=== PATIENT | female | born 1965 ===

== ENCOUNTER 2018-01-18 09:16 | Emergency (ER) | payer OTHER ==
[2018-01-18 09:20] VITALS: BMI 30.6
[2018-01-18] MEDS ORDERED: Oxycodone/Acetaminophen 5/325 mg Tab PO ONE (10:21)
[2018-01-18] MEDS ORDERED: Oxycodone/Acetaminophen 5/325 mg Tab ONE (10:37)
--- NOTE | 2018-01-18 11:09 | CT ---
PROCEDURE: CT HEAD WITHOUT CONTRAST. HISTORY: Headache, facial rash COMPARISON: None available. TECHNIQUE: Axial computed tomography images were obtained through the head/brain without intravenous contrast. Radiation dose: Total exam DLP = 777.03 mGy-cm. This CT exam was performed using one or more of the following dose reduction techniques: Automated exposure control, adjustment of the mA and/or kV according to patient size, and/or use of iterative reconstruction technique. FINDINGS: HEMORRHAGE: No intracranial hemorrhage. BRAIN: There are mild chronic microangiopathic changes. Garcia-white matter differentiation is preserved. There is no mass, mass effect or abnormal extra-axial fluid collection. There is a nonspecific calcification in the left parietal cortex. VENTRICLES: There is mild global parenchymal volume loss and proportionate enlargement of the ventricles and cortical sulci. CALVARIUM: There is no calvarial fracture or extracranial soft tissue swelling. PARANASAL SINUSES: Predominantly clear. MASTOID AIR CELLS: Predominantly clear. OTHER FINDINGS: None. IMPRESSION: No acute intracranial abnormality. Mild chronic microangiopathic changes. Mild global parenchymal volume loss, slightly advanced for the patient's age.
--- NOTE | 2018-01-18 11:32 | ED PDOC ---
HPI: Headache Time Seen by Provider: 01/18/18 09:28 Chief Complaint (Nursing): Headache Chief Complaint (Provider): Headache History Per: Patient History/Exam Limitations: no limitations Onset/Duration Of Symptoms: Days (x 5) Quality: Burning Additional Complaint(s): 52 years old female presents to the ED with complaints of burning rash on the left side of her face below her left eye, and left side of her nose associated with facial pain, left ear pain and headache onset 5 days. Patient reports pain started with nasal congestion and runny nose and admits taking Trimosin for pain. She states pain radiates to her left neck, left shoulder and left arm. Patient reports using artificial tears after experiencing eye redness. She denies any fever, chest pain or difficulty breathing. PMD: non provided Past Medical History Reviewed: Historical Data, Nursing Documentation, Vital Signs Vital Signs: Last Vital Signs Temp 98.6 F 01/18/18 09:20 Pulse 70 01/18/18 09:20 Resp 16 01/18/18 09:20 BP 147/84 01/18/18 09:20 Pulse Ox 96 01/18/18 09:20 - Medical History PMH: Gall Bladder Disease - Surgical History Surgical History: Cholecystectomy, Hernia Repair (umbilical), - Family History Family History: States: Unknown Family Hx - Social History Current smoker - smoking cessation education provided: No Alcohol: None Drugs: Denies - Home Medications Home Medications: Ambulatory Orders Medication Instructions Recorded Acyclovir [Zovirax] 800 mg PO 5XD #35 tab 01/18/18 Glycerin/Propylene Glycol 1 drop OS Q3 #1 bottle 01/18/18 [Artificial Tears Drops] Trifluridine Opht 1% [Viroptic 1% 1 drop OS Q2 10 Days #1 bottle 01/18/18 Opht Soln] oxyCODONE/Acetaminophen [Percocet 1 ea PO Q6 PRN #15 tab 01/18/18 5/325 mg Tab] - Allergies Allergies/Adverse Reactions: Allergies Allergy/AdvReac Type Severity Reaction Status Date / Time No Known Allergies Allergy Verified 01/18/18 09:38 Review of Systems ROS Statement: Except As Marked, All Systems Reviewed And Found Negative Constitutional: Negative for: Fever, Chills Eyes: Positive for: Pain (left eye), Redness (left eye) ENT: Positive for: Ear Pain (left sided), Nose Discharge, Nose Congestion Cardiovascular: Negative for: Chest Pain Respiratory: Negative for: Shortness of Breath Musculoskeletal: Positive for: Neck Pain (left sided), Shoulder Pain (left), Arm Pain (left) Neurological: Positive for: Headache Physical Exam - Reviewed Nursing Documentation Reviewed: Yes Vital Signs Reviewed: Yes - Physical Exam Appears: Positive for: Non-toxic, No Acute Distress Head Exam: Positive for: ATRAUMATIC, NORMOCEPHALIC Skin: Positive for: Rash (Vesicular on left lower eyelid. Left laterally on nose and tip of nose) Eye Exam: Positive for: EOMI, PERRL ENT: Positive for: Normal ENT Inspection. Negative for: Other (Uptake of fluorescein. Dendritic ulcer.) Neck: Positive for: Normal, Supple Cardiovascular/Chest: Positive for: Regular Rate, Rhythm. Negative for: Murmur Respiratory: Positive for: Normal Breath Sounds. Negative for: Respiratory Distress Gastrointestinal/Abdominal: Positive for: Normal Exam, Soft, Tenderness Extremity: Positive for: Normal ROM. Negative for: Tenderness, Swelling Neurologic/Psych: Positive for: Alert, Oriented - Laboratory Results Result Diagrams: 01/18/18 10:45 01/18/18 10:45 - ECG O2 Sat by Pulse Oximetry: 96 (RA) Pulse Ox Interpretation: Normal Medical Decision Making Medical Decision Making: Time: 1016 Initial Impression: Facial rash and headache. Differential includes but not limited to herpes zoster of face and oftalmos herpes zoster. Initial Plan: --Head CT w/o Contrast --BMP --CBC (with differential) --Percocet 5/325 mg tab PO --Toradol 30 mg IM Time: [address] FINDINGS: HEMORRHAGE: No intracranial hemorrhage. BRAIN: There are mild chronic microangiopathic changes. Garcia-white matter differentiation is preserved. There is no mass, mass effect or abnormal extra- axial fluid collection. There is a nonspecific calcification in the left parietal cortex. VENTRICLES: There is mild global parenchymal volume loss and proportionate enlargement of the ventricles and cortical sulci. CALVARIUM: There is no calvarial fracture or extracranial soft tissue swelling. PARANASAL SINUSES: Predominantly clear. MASTOID AIR CELLS: Predominantly clear. OTHER FINDINGS: None. IMPRESSION: No acute intracranial abnormality. Mild chronic microangiopathic changes. Mild global parenchymal volume loss, slightly advanced for the patient's age. Time: [address] Kaur, who covers for Dr. Vance, and recommends starting the patient on artificial eye drops and states he can see her today in his office. Patient is given prescription and is stable for discharge. Scribe Attestation: Documented by Vi Webb, acting as a scribe for Yaya Reddy MD. Provider Scribe Attestation: All medical record entries made by the Scribe were at my direction and personally dictated by me. I have reviewed the chart and agree that the record accurately reflects my personal performance of the history, physical exam, medical decision making, and the department course for this patient. I have also personally directed, reviewed, and agree with the discharge instructions and disposition Disposition - Clinical Impression Clinical Impression: Herpes zoster ophthalmicus of left eye, Shingles - Patient ED Disposition Is Patient to be Admitted: No Doctor Will See Patient In The: Office Counseled Patient/Family Regarding: Studies Performed, Diagnosis, Need For Followup - Disposition Referrals: Brandon Vance MD [Staff Provider] - Disposition: Routine/Home Disposition Time: 11:30 Condition: GOOD Additional Instructions: Take your medications as instructed. Follow up with eye doctor today. Prescriptions: Acyclovir [Zovirax] 800 mg PO 5XD #35 tab Glycerin/Propylene Glycol [Artificial Tears Drops] 1 drop OS Q3 #1 bottle oxyCODONE/Acetaminophen [Percocet 5/325 mg Tab] 1 ea PO Q6 PRN #15 tab PRN Reason: Pain, Severe (8-10) Trifluridine Opht 1% [Viroptic 1% Opht Soln] 1 drop OS Q2 10 Days #1 bottle Instructions: Jared BARONE) Print Language: TURKISH
[2018-01-18 12:13] LABS: BASO % 0.5 % (0.0-2.0); EOS # 0.1 K/uL (0.0-0.7); EOS % 3.6 % (0.0-4.0); HEMOGLOBIN 14.2 g/dL (12.0-16.0); LYMPH % 27.8 % (20.0-40.0); MEAN CELL VOLUME 89.6 fl (81.0-99.0); MEAN CORPUSCULAR HGB CONC 33.5 g/dL (33.0-37.0); MEAN PLATELET VOLUME 9.4 fl (7.2-11.7); MONO # 0.4 K/uL (0.0-0.8); NEUT # 2.1 K/uL (1.8-7.0); NEUT % 56.1 % (50.0-75.0); NRBC % 0.2 % (0.0-0.0); RBC 4.73 Mil/uL (3.80-5.20); RED CELL DISTRIBUTION WIDTH 13.6 % (11.5-14.5); WHITE BLOOD COUNT 3.7 K/uL (4.8-10.8)
[2018-01-18 12:38] LABS: BLOOD UREA NITROGEN 11 mg/dl (7-17); CALCIUM 9.1 mg/dL (8.4-10.2); GFR AFRICAN-AMERICAN > 60; GFR NON-AFRICAN AMERICAN > 60
[2018-01-18 13:15] VITALS: BP 139/77; PULSE 65; RESP 18; TEMP 98.5
[2018-01-18 13:17] VITALS: O2SAT 96
== END 2018-01-18 13:05 | disposition home or self-care (01) ==
LOC: H.ER 09:16
DX: B02.30 Zoster ocular disease, unspecified (principal); B02.9 Zoster without complications
CPT/HCPCS: 70450; 80048; 85025; 96372; 99285; J1885

== ENCOUNTER 2018-09-09 17:54 | Emergency (ER) | payer SELFPAY ==
[2018-09-09 17:54] VITALS: BMI 30.6
[2018-09-09 18:08] VITALS: RESP 18; O2SAT 96
[2018-09-09] MEDS ORDERED: Albuterol-Ipratrop 3 mg / 0.5 (3 ml) UD ONE (19:59)
--- NOTE | 2018-09-09 19:59 | ED PDOC ---
HPI: Influenza Time Seen by Provider: 09/09/18 18:34 Chief Complaint: Cough, Cold, Congestion Chief Complaint (Provider): Cough, Cold, Congestion History Per: Patient Exam Limitations: no limitations Onset/Duration Of Symptoms: Days (x2 weeks) Symptoms include: fever, headache, sore throat, cough, nasal congestion Sick Contacts (Context): Family Member(s) (daughter) Additional complaint(s):: Ciera Tolentino is a 53 year old female with no past medical history, who presents to the emergency department complaining of cough, nasal congestion, onset x2 weeks. Patient states she started to have nasal congestion with drainage, headache, cough with production of yellowish sputum. She was a given a Rx by her PMD for Azithromycin that she completed x4 days ago. Her cough was persistent and she had more trouble breathing when walking. She also developed a mild sore throat for the past couple of days associated with a fever. The fever was measured to be 39 Celsius was lasted noted x2 days ago. Patient has been using mucinex for cough and excedrin for chest pain that persists after coughing. The pain does not radiate anywhere, she also denies any palpitations, dizziness, nausea, vomiting, or diarrhea. PMD: Candelaria Smith Past Medical History Reviewed: Historical Data, Nursing Documentation Vital Signs: Last Vital Signs Temp 98.3 F 09/09/18 18:07 Pulse 79 09/09/18 18:07 Resp 18 09/09/18 18:07 BP 156/103 H 09/09/18 18:07 Pulse Ox 96 09/09/18 18:07 - Medical History PMH: No Chronic Diseases, Gall Bladder Disease - Surgical History Surgical History: Cholecystectomy, Hernia Repair (umbilical), - Family History Family History: States: Unknown Family Hx - Home Medications Home Medications: Ambulatory Orders Medication Instructions Recorded Acyclovir [Zovirax] 800 mg PO 5XD #35 tab 01/18/18 Glycerin/Propylene Glycol 1 drop OS Q3 #1 bottle 01/18/18 [Artificial Tears Drops] Trifluridine Opht 1% [Viroptic 1% 1 drop OS Q2 10 Days #1 bottle 01/18/18 Opht Soln] oxyCODONE/Acetaminophen [Percocet 1 ea PO Q6 PRN #15 tab 01/18/18 5/325 mg Tab] Albuterol 0.083% [Albuterol 3 ml IH Q6 PRN 7 Days neb 09/09/18 Sulfate 3 Ml] Prednisone 50 mg PO DAILY 4 Days tablet 09/09/18 - Allergies Allergies/Adverse Reactions: Allergies Allergy/AdvReac Type Severity Reaction Status Date / Time No Known Allergies Allergy Verified 09/09/18 18:07 Review of Systems ROS Statement: Except As Marked, All Systems Reviewed And Found Negative Constitutional: Positive for: Fever ENT: Positive for: Nose Discharge, Nose Congestion, Throat Pain Cardiovascular: Negative for: Chest Pain, Palpitations Respiratory: Positive for: Cough, Sputum Gastrointestinal: Negative for: Nausea, Vomiting, Diarrhea Neurological: Positive for: Headache. Negative for: Dizziness Physical Exam - Reviewed Nursing Documentation Reviewed: Yes Vital Signs Reviewed: Yes - Physical Exam Appears: Positive for: No Acute Distress Skin: Positive for: Normal Color ENT: Positive for: TM Is/Are (Left ear: effusion but no erythema or bulging // Right ear: normal), Pharyngeal Erythema. Negative for: Tonsillar Exudate, Tonsillar Swelling Cardiovascular/Chest: Positive for: Regular Rate, Rhythm. Negative for: Murmur Respiratory: Positive for: Rhonchi (diffuse rhonchi bilaterally but partially cleared by cough). Negative for: Rales, Wheezing Neurologic/Psych: Positive for: Alert, Oriented (x3) Medical Decision Making Medical Decision Making: Time: 1949 Plan: --Chest x-ray --Duoneb 3 ml INH --Ibuprofen 600 mg PO --Rapid strep group A antigen --Rapid flu a/b 2150 Chest x-ray was unremarkable, no active pulmonary disease. 22:00: re-evaluated, lung sounds improved but with minimal scattered wheezing B/L. given prescription for albuterol and recommended to use regularly for cough as well as OTC meds. Script for Prednisone given as well. Scribe Attestation: Documented by Nick Colindres, acting as a scribe for Rubia Taylor PA-C. Provider Scribe Attestation: All medical record entries made by the Scribe were at my direction and personally dictated by me. I have reviewed the chart and agree that the record accurately reflects my personal performance of the history, physical exam, medical decision making, and the department course for this patient. I have also personally directed, reviewed, and agree with the discharge instructions and disposition. - ECG O2 Sat by Pulse Oximetry: 96 (RA) Pulse Ox Interpretation: Normal Disposition - Clinical Impression Clinical Impression: Bronchitis - Patient ED Disposition Is Patient to be Admitted: No Counseled Patient/Family Regarding: Studies Performed, Diagnosis, Need For Followup, Rx Given - Disposition Referrals: Lorri Berry MD [Family Provider] - Disposition: Routine/Home Disposition Time: 21:50 Condition: STABLE Additional Instructions: Take Prednisone and Albuterol as prescribed. Return to ER if you develop shor tness of breath or worsening fevers. Take over the counter cough medications as needed for cough and use albuterol for the cough. Prescriptions: Albuterol 0.083% [Albuterol Sulfate 3 Ml] 3 ml IH Q6 PRN 7 Days neb PRN Reason: Cough Prednisone 50 mg PO DAILY 4 Days tablet Instructions: Acute Bronchitis, Adult (DC) Forms: [employer] (Ukrainian) Print Language: SETSWANA
[2018-09-09] MEDS ORDERED: Albuterol-Ipratrop 3 mg / 0.5 (3 ml) UD INH SCH (20:00)
[2018-09-09 22:02] VITALS: BP 139/90; PULSE 80; TEMP 98.6
--- NOTE | 2018-09-10 09:25 | RAD ---
Date of service: 09/09/2018 HISTORY: shortness of breath, cough COMPARISON: No prior. TECHNIQUE: Chest PA and lateral FINDINGS: LUNGS: No active pulmonary disease. PLEURA: No significant pleural effusion identified. No pneumothorax apparent. CARDIOVASCULAR: There is presence of aortic atherosclerotic calcification on x-ray. Probable top-normal heart size no pulmonary vascular congestion. OSSEOUS STRUCTURES: Thoracic spondylosis. VISUALIZED UPPER ABDOMEN: Surgical clips seen in the central to right paracentral upper abdomen these are partially visualized. OTHER FINDINGS: None. IMPRESSION: No active disease. Other findings as above.
== END 2018-09-09 21:50 | disposition home or self-care (01) ==
LOC: H.ER 17:54
DX: J40 Bronchitis, not specified as acute or chronic (principal); R06.2 Wheezing